=== PATIENT | female | born 1955 | race Caucasian/White ===

== ENCOUNTER 2025-09-10 14:08 | Outpatient (AMB) | payer MEDICARE, SELFPAY ==
--- NOTE | 2025-09-10 14:09 | A.OFFPC_ITS ---
Vital Signs 09/10/25 14:14 Height 5 ft 4.17 in Weight 167 lb BMI 28.5 BP 110/57 L Blood Pressure Location Rt brachial Position Sitting Respiration 14 Pulse 74 Pulse Source Pulse Oximeter Temp 97.3 F Temp Source Temporal Artery Scan Pulse Oximetry (%) 97 Oxygen Delivery Method Room Air Intake Visit Reasons: Est. care Dining Room Cashier Required: No Accompanied by: Self / Same As Patient Allergies No Known Allergies (No Known Allergies*) Allergy (Unverified 09/10/25 15:26) Medication List - Last Reconciled 09/10/25 by Yony Baeza MD pantoprazole 40 mg PO BID zolpidem (Ambien) 5 mg PO BEDTIME Tobacco use date assessed: 09/10/25 Fall risk assessment: No Falls in past year Last assessed Fall Risk: 09/10/25 Dental Screening Dental Screen Date: 09/10/25 Did you have a dental visit in the last 12 months?: Yes Did you have a dental problem in the last 6 months where you did not have access to dental care?: No Was dental information given to patient?: Patient has dentist HPI HPI Comments History of Present Illness Details History of Present Illness - The patient is a 70-year-old female pr [facility]enting to [facility]. - Her primary concerns today are her rig ht hip and chronic difficulty breathing through her nose. - Regarding her hips, she underwent a le ft hip replacement one year ago and is now experiencing issues with her right hip, for which she plans to have surgery next April. - The patient reports long-standing nasa l blockage that occurs both day and night, without any associated rhinorrhea. - She notes the obstruction is positiona l, shifting to whichever side she is lying on. - She suspects she broke her nose in an accident in [place] nine years ago but it was not addressed at the time due to other injuries. - She has tried a neti pot and previousl y saw an ENT specialist once for this issue. - The patient takes pantoprazole for gas troesophageal reflux, and while it was prescribed twice a day, she has reduced her dose to once daily. - For health screenings, she believes he r last mammogram was maybe last year and is due for another. - She has had a colonoscopy previously t hrough Dr. Altman's office at [facility], and records are being sent over. - She usually gets an annual flu shot bu t is declining it this year because she had influenza about a month ago. Social History - Employment: The patient is retired; sh miriam previously worked for [employer]. - Living Situation: She lives with her jerica michelle. - Travel: She enjoys traveling frequentl y and has upcoming trips to [place] and [place] planned. Results [facility] History History of colonoscopy (~04/08/17) Family History (Updated 09/10/25 @ 14:21 by ALBERTINA Rios) Father Smoker COPD (chronic obstructive pulmonary disease) Mother A-fib Brother Lung cancer Social History (Updated 09/10/25 @ 14:21 by ALBERTINA Rios) Housing: House Alcohol intake: current Alcohol intake frequency: a few times a week Alcohol type: wine Patient Tobacco Use Status: Never used Tobacco service: No Current occupational status: retired Cognitive needs: No Hearing needs: No Vision needs: Yes (rx glasses) Questionnaire PHQ-9 Over the last 2 weeks, how often have you been bothered by any of the following problems? 1. Little interest or pleasure in doing things: not at all 2. Feeling down, depressed, or hopeless: not at all 3. Trouble falling or staying asleep, or sleeping too much: not at all 4. Feeling tired or having little energy: not at all 5. Poor appetite or overeating: not at all 6. Feeling bad about yourself - or that you are a failure or have let yourself or your family down: not at all 7. Trouble concentrating on things, such as reading the newspaper or watching television: not at all 8. Moving or speaking so slowly that other people could have noticed. Or the opposite - being so fidgety or restless that you have been moving around a lot more than usual: not at all 9. Thoughts that you would be better off or of hurting yourself in some way: not at all Total score: 0 Source: Developed by Drs. Khurram Torres, Kari Simons, Hans rao nd colleagues, with an educational yanick from [employer]. Thrive Questionnaire Date Thrive assessed: 09/10/25 I am a: Patient What is your living situation today?: I have a steady place to live Within the past 12 months, did the food you bought not last and you didn't have the money to get more?: Never true Within the past 12 months, did you worry whether your food would run out before you got money to buy more?: Never true Do you have trouble paying for medicines?: No Do you have trouble getting transportation to medical appointments?: No Do you have trouble paying your heating and electricity bill?: No Do you have trouble taking care of your child, family member or friend?: No Do you have trouble with day-to-day activities such as bathing, preparing meals, shopping, managing finances, etc.?: No Are you currently unemployed and looking for a job?: No Are you interested in more education?: No Please select the resources that you would like help with: None THRIVE Score: 0 AUDIT C Alcohol Use Questionnaire (AUDIT-C) 1. How often do you have a drink containing alcohol?: 2-3 times a week 2. How many drinks containing alcohol do you have on a typical day when you are drinking?: 1 or 2 3. How often do you have six or more drinks on one occasion?: Never Total Score: 3 SHAILA-7 AMB Questionnaire SHAILA-7 Date SHAILA - 7 assessed: 09/10/25 Feeling nervous, anxious, or on edge: 0 = Not at all Not being able to stop or control worryin = Not at all Worrying too much about different things: 0 = Not at all Trouble relaxin = Not at all Being so restless that it is hard to sit still: 0 = Not at all Becoming easily annoyed or irritable: 0 = Not at all Feeling afraid as if something awful might happen: 0 = Not at all Total SHAILA-7 score (0-4 normal; 5-9 mild; 10-14 moderate; 15-21 severe): 0 Source: Developed by Drs. Khurram Torres, Kari Simons, Hans Vaca and colleagues, with an educational yanick from [employer]. Review of Systems Narrative Review of Systems - Constitutional: Denies any acute health concerns. Reports recent history of influenza approximately one month ago. - HEENT: Reports chronic nasal obstruction described as a blockage. Denies rhinorrhea. Reports vision is progressing towards cataracts. Denies halos around lights. Hearing is reported as good; denies difficulty hearing on the phone or needing to increase TV volume. - Musculoskeletal: Reports right hip pain. History of left hip replacement one year ago. - Gastrointestinal: Manages GERD with pantoprazole. Physical exam (Primary Care) Vital Signs: Last Vital Signs Temp 97.3 F 09/10/25 14:14 Pulse 74 09/10/25 14:14 Resp 14 09/10/25 14:14 BP 110/57 L 09/10/25 14:14 Pulse Ox 97 09/10/25 14:14 Oxygen Delivery Method Room Air 09/10/25 14:14 BMI result Body Mass Index 28.5 Tobacco/Smoking Status: Tobacco use Status Tobacco use date assessed 09/10/25 09/10/25 14:12 Patient Tobacco Use Status Never used Tobacco 09/10/25 14:21 PHQ-9: PHQ-9 Score PHQ-9: Total score 0 09/10/25 14:12 Thrive Assessment: Date of Thrive Assessment Date Thrive assessed 09/10/25 09/10/25 14:12 Narrative Physical Exam General: Appearance normal, both eyes and all related structures Nutritional Appearance: Well nourished Orientation/consciousness: Patient oriented x3 Limitations: Right hip issue, awaiting surgery next April Head: Normal to inspection, history of broken nose Neck: Normal visual inspection Chest: Normal palpation of entire chest wall Respiratory: Difficulty breathing through nose, feels blocked Neurology: Patient oriented x3 Office Procedures Flu Questionnaire Does the patient have a severe egg allergy?: No Does the patient have severe life threatening allergies?: No Does the patient have a fever or illness today?: No Has the patient ever had Guillain-Westfield Syndrome?: No Has the patient ever had any past reaction to a flu shot?: No Immunizations Fluarix [id number] (PF) 45 mcg (15 mcg x 3)/0.5 mL IM syringe Performing Provider: Yony Baeza MD [facility] [place] [facility] Documented (not given) by: ALBERTINA Rios on 09/10/25 14:22 Reason Not Given: Patient Refused Coding Level of Care Code New Pt Prev Care >65yr (12047) Add On Preventative Visit Only Diagnoses Annual physical exam Z00.00 Assessment & Plan Assessment & Plan (1) Annual physical exam: Code(s): Z00.00 - Encounter for general adult medical examination without abnormal findings Plan Plan - Will order laboratory studies including thyroid function tests, kidney function, liver function, and a cholesterol panel. - Will order a mammogram, to be done at the hospital. - The patient will continue taking pantoprazole once daily as she is currently doing. - A prescription for Ambien will be sent for use to aid with sleep during upcoming international travel. - The patient will defer her influenza vaccination for this year due to a recent flu illness and will revisit it next year. - Will follow up on records from her previous provider, including colonoscopy reports. - The patient will follow up in six months. Discussion Notes I have reviewed the patient's current health concerns and health maintenance status. I am ordering baseline blood work, including a lipid panel, thyroid, kidney, and liver function tests, and a screening mammogram. We discussed that she can skip the influenza vaccine this year due to her recent illness. I also addressed her request for a sleep aid for her upcoming international flight and have sent a prescription for Ambien, which she has tolerated in the past. She will continue her pantoprazole as she has been taking it, and we will obtain records from her prior physician. I advised her to follow up in six months. Patient Instructions - Please go to the [facility] system lab on [address] to have your blood drawn for the ordered tests. - An order has been placed for you to get a mammogram at the hospital. - Continue taking your pantoprazole once a day. - A prescription for Ambien has been sent to your pharmacy. You can use this to help you sleep on your long flight to [facility]. - You do not need to get a flu shot this year since you recently had the flu. - Please schedule a follow-up appointment in six months. Orders: Orders Influenza [id number] Immunization Today Z23 - Encounter for immunization Complete Blood Count no Diff Today E78.5 - Hyperlipidemia, unspecified Lipid Panel Today E78.5 - Hyperlipidemia, unspecified Thyroid Stimulating Hormone Today E78.5 - Hyperlipidemia, unspecified UA and rflx microscopic Today E78.5 - Hyperlipidemia, unspecified MM screening mammo BI Today Z12.31 - Encounter for screening mammogram for malignant neoplasm of breast CT sinus wo IV con Today J32.9 - Chronic sinusitis, unspecified Basic Metabolic Panel Today E78.5 - Hyperlipidemia, unspecified Medications: New zolpidem (Ambien) 5 mg PO BEDTIME 14 tabs 0RF
[2025-09-10 14:14] VITALS: BP 110/57; PULSE 74; RESP 14; TEMP 36.3; O2SAT 97; BMI 28.5
--- OUTSIDE RECORDS SUMMARY | 2025-09-10 17:37 | XMS_ITS | Clinical Summary ---
Author Organization [facility] Address [address] [place] [id number] Care Team Providers Care Soil Technician Name Role Phone MillerChaim Jorge A Primary Care Provider [phone] Chaim Miller Unavailable [phone] Allergies No known active allergies Medications pantoprazole (PROTONIX) [address] tablet Take 1 tablet (40 mg total) by mouth daily. Active acetaminophen (TYLENOL EXTRA STRENGTH) 500 MG tablet Take 2 tablets (1,000 mg total) by mouth every 8 hours as needed for pain. 120 tablet Active naproxen sodium (ALEVE) 220 MG tablet Take 1 tablet (220 mg total) by mouth 2 times a day with breakfast & dinner. Active ibuprofen (MOTRIN) 400 MG tablet Take 2 tablets (800 mg total) by mouth every 8 hours as needed for pain. May reduce to 1 tablet every 8 hours as pain improves. 120 tablet 4 025 Discontinued (Therapy Completed (Pharmacy will be notified)) Active Problems No known active problems Encounters Date Type Department Care Team Description 08/23/2025 11:30 AM EST Office Visit [facility] Business Office Coordinator [address] [facility] [place] [address] Edith Acevedo PA Primary osteoarthritis of right hip (Primary Dx); Presence of left artificial hip joint 08/23/2025 10:42 AM EST - 08/23/2025 11:59 PM EST Hospital Encounter [facility] Radiology [address] [place] [address] Edith Acevedo PA Presence of left artificial hip joint Discharge Disposition: Home or Self Care from Last 3 Months Family History Medical History Relation Comments Cancer Brother Early Brother 52 COPD Father Arthritis Mother Relation Status Comments Brother Father Mother Alive Social History Tobacco Use Types Packs/Day Years Used Date Smoking Tobacco: Never Alcohol Use Standard Drinks/Week Comments Yes 3 (1 standard drink = 0.6 oz pur e alcohol) Comments Unknown Sex and Gender Information Value Date Recorded Sex Assigned at Female 05/04/2024 9:16 AM EDT Legal Sex Female 11:21 PM EST Gender Identity Female 05/04/2024 9:16 AM EDT Sexual Orientation Not on file Last Filed Vital Signs Vital Sign Reading Time Taken Comments Blood Pressure - - Pulse - - Temperature - - Respiratory Rate - - Oxygen Saturation - - Inhaled Oxygen Concentration - - Weight 75.6 kg (166 lb 9.6 oz) 08/23/2025 11:39 AM EST Height 165.1 cm (5' 5 ) 12/21/2024 12:59 PM EDT Body Mass Index 27.72 12/21/2024 12:59 PM EDT Plan of Treatment Health Maintenance Due Date Last Done Comments Blood Pressure 1956 Hemoglobin A1c 1956 Lipid Panel 1956 Depression Screening 1968 Hepatitis C Screening 1974 DTaP,Tdap,and Td Vaccines (1 - Tdap) 1975 Breast Cancer Screening [address] CT Colonography 2001 Colonoscopy 2001 Colorectal Cancer Screening 2001 FIT 2001 FOBT 2001 Multitarget Stool DNA (Cologuard) 2001 Sigmoidoscopy 2001 Pneumococcal Vaccine: 50+ Ye ars (1 of 1 - PCV) 2006 Zoster Vaccine (1 of 2) 2006 Osteoporosis Screening 2021 Medicare Initial AWV [id number] 09/19/2024 COVID-19 Vaccine (1 - 2024-2 6 season) 2025 Influenza Vaccine (#1) 2025 Meningococcal B Vaccines Aged Out No longer eligible based on patient's age to complete this topic Meningococcal Vaccines Aged Out No lo nger eligible based on patient's age to complete this topic Procedures Procedure Name Priority Date/Time Associated Diagnosis Comments XR HIP 2+ VW LEFT Routine 08/23/2025 10: 47 AM EST Presence of left artificial hip joint from Last 3 Months Results * XR Hip 2-3 VW Left (08/23/2025 10:47 AM EST) Anatomical Region Laterality Modality Hip Left Digital Radiogra phy 08/23/2025 3:21 PM EST Narrative 08/23/2025 3:22 PM EST Comparison: 09/21/2024 and 06/06/2024 FINDINGS: Left hip total arthroplasty is in standard alignment without hardware complications. Right hip axial joint space narrowing with eburnation and osteophytes is compatible with osteoarthritis. Procedure Note Fernando Quick MD - 08/23/2025 Comparison: 09/21/2024 and 06/06/2024 FINDINGS: Left hip total arthroplasty is in standard alignment without hardware complications. Right hip axial joint space narrowing with eburnation and osteophytes is compatible with osteoarthritis. Edith DANG IMG DIAGNOSTIC IMAGING ORDERABLE S Final Result from Last 3 Months Insurance [facility] MEDICARE ADVANTAGE [facility] MEDICARE ADVANTAGE Care Teams Soil Technician Relationship Specialty Start Date End Date Chaim Miller PCP - General 05/04/24 Chaim Miller [address] [place] [id number] PCP - Insurance Assigned PCP 08/16/25
--- OUTSIDE RECORDS SUMMARY | 2025-09-10 17:37 | XMS_ITS | Clinical Summary ---
Author Organization [facility] Address [address] [place] [id number] Phone Care Team Providers Care Drapery Cutter Name Role Phone Chaim Miller MD Primary Care Provider [phone] Allergies No known active allergies Medications indomethacin (INDOCIN) 50 MG capsule Active pantoprazole (PROTONIX) 40 MG tablet TAKE 1 TABLET BY MOUTH TWICE A DAY DIRECTED FOR HEARTBURN Active Active Problems No known active problems Social History Tobacco Use Types Packs/Day Years Used Date Smoking Tobacco: Never Assessed Education Answer Date Recorded Are you interested in more education? Not on lauren e 12/03/2023 Are you concerned about learning? Not on file 12/03/2023 No 12/03/2023 No 12/03/2023 Digital Access Answer Date Recorded No 12/03/2023 No 12/03/2023 Reliable internet access at home? Not on file 12/03/2023 Device with a working camera? Not on file Comments Unknown Sex and Gender Information Value Date Recorded Sex Assigned at Female 04/11/2024 10:25 AM EDT Legal Sex Female 2:25 PM EST Gender Identity Female 04/11/2024 10:25 AM EDT Sexual Orientation Straight 04/11/2024 10 :26 AM EDT Last Filed Vital Signs Vital Sign Reading Time Taken Comments Blood Pressure - - Pulse - - Temperature - - Respiratory Rate - - Oxygen Saturation - - Inhaled Oxygen Concentration - - Weight 73.9 kg (163 lb) 04/13/2024 10:43 AM EDT Height 165.1 cm (5' 5 ) 04/13/2024 10:43 AM EDT Body Mass Index 27.12 04/13/2024 10:43 AM EDT Plan of Treatment Upcoming Encounters Date Type Department Care Team (Late st Contact Info) Description 09/20/2029 Hospital Encounter [facility] PERIOPERATIVE DEPT [address] [place] [address] Bandar Haro MD [address] [address] [email or web address] 09/[email or web address]/2029 Procedure Pass [facility] PERIOPERATIVE DEPT [address] [place] [address] Scheduled Procedures Name Priority Associated Diagnoses Date/Ti me ARTHROPLASTY TOTAL HIP Primary osteoarthritis of left hip MODIFIER ARTHROPLASTY TOTAL HIP CESARIO Primary osteoarthritis of left hip Health Maintenance Due Date Last Done Comments Adult Td,Tdap Booster 1956 LIPID PANEL 1956 DEPRESSION SCREENING 1968 SMOKING Hx and SMOKELESS TOB ACCO SCREENING 1969 HEPATITIS C SCREENING 1974 SCREENING FOR DIABETES 1991 MAMMOGRAM 1996 COLOGUARD 2001 COLONOSCOPY 2001 COLORECTAL CANCER SCREENING 2001 FIT TEST 2001 FOBT 2001 SIGMOIDOSCOPY 2001 VIRTUAL COLONOSCOPY 2001 PNEUMOCOCCAL VACCINES (50+ y ears) (1 of 1 - PCV) 2006 ZOSTER VACCINES (1 of 2) 2006 OSTEOPOROSIS SCREENING INITI AL (ONE-TIME) 2021 INFLUENZA VACCINE (#1) 2025 COVID-19 VACCINE ( - 2024-2 6 season) 2025 RSV VACCINE (1 - 1-dose 75+ series) 2031 HEPATITIS A VACCINES Aged Out No long er eligible based on patient's age to complete this topic HIB VACCINES Aged Out No longer eligi ble based on patient's age to complete this topic MENINGOCOCCAL VACCINES (ACWY) Aged Out No longer eligible based on patient's age to complete this topic MENINGOCOCCAL VACCINES (B) Aged Out N o longer eligible based on patient's age to complete this topic Medical Devices Not on file Insurance [employer] PPO MEDICARE REPLACEMENT [employer] PPO MEDICARE REPLACEMENT [employer] PPO MEDICARE REPLACEMENT [address] [place], [place] [id number] MEDICARE REPLACEMENT [address] [place] [address] [facility] RE[facility] Care Teams Drapery Cutter Relationship Specialty Start Date End Date Chaim Miller MD [address] [place] [address] PCP - General Internal Medicine 11/26/23 Additional Source Comments The information contained in this document represents components of the legal health record. It is not the complete legal health record.[facility]
--- OUTSIDE RECORDS SUMMARY | 2025-09-10 17:37 | XMS_ITS ---
Author Name [facility] Organization Unknown Encounters Encounter Type Encounter Reason Primary Diagnosis Location Date Ambulatory [facility] 03/01/2024 Ambulatory [facility] [place] 03/01/2024
== END 2025-09-10 15:16 | disposition home or self-care (01) ==
LOC: HO.HMCSH 14:08
PROVIDERS: PCP Internal Medicine; Visit Provider Internal Medicine
DX: Z00.00 Encounter for general adult medical examination without abnormal findings (principal)

== ENCOUNTER → 2025-09-10 14:08 | Outpatient (BNVA) | payer MEDICARE, SELFPAY | PROVIDERS: PCP Internal Medicine; Visit Provider Internal Medicine | DX: Z00.00 Encounter for general adult medical examination without abnormal findings (principal); Z76.89 Persons encountering health services in other specified circumstances; Z13.31 Encounter for screening for depression; Z13.39 Encounter for screening examination for other mental health and behavioral disorders; E78.5 Hyperlipidemia, unspecified; J32.9 Chronic sinusitis, unspecified | CPT/HCPCS: 96127; 99387 ==